=== PATIENT | male | born 1960 | race Caucasian/White ===

== ENCOUNTER → 2018-03-27 | Outpatient (CLI) | payer BC ==
[~2018-03-27] MED LIST: ADVIL 200MG TA200 MG PO; CEFTIN 250250 MG/TAB PO; CLEOCIN; LAMISIL; LORTAB 5/500 501 TAB PO; MAXIPIME2 GM IV; MINOCYCLINE; MULTI VITAMINS1 TAB PO; NAPROSYN 2250 MG/TAB PO; NORCO 325 MG-51 TAB PO; OMNICEF 300MG300 MG PO; PHENERGAN 25 TA25 MG PO; TIAZAC180 MG; ZOFRAN 4MG T4 MG/TAB PO
== END ==
LOC: COL.LAB 17:12
DX: Z01.812 Encounter for preprocedural laboratory examination (principal)

== ENCOUNTER 2018-09-05 09:45 | Emergency (ER) | payer BC ==
[~2018-09-05] VITALS: Ht 190.5 cm; Wt 109.1 kg
[2018-09-05 10:09] VITALS: TEMP 97
[2018-09-05 10:29] LABS: COLLECTION METHOD CLEAN CATCH
[2018-09-05 10:43] LABS: PH 6 (5-8); SQUAMOUS EPITHELIAL None Seen /hpf; URINE APPEARANCE Clear; URINE BACTERIA Rare /hpf; URINE BILIRUBIN Negative (NEGATIVE); URINE BLOOD 2+ (NEGATIVE); URINE COLOR Yellow; URINE GLUCOSE Negative (NEGATIVE); URINE KETONE Negative (NEGATIVE); URINE LEUKOCYTE ESTERASE Negative (NEGATIVE); URINE NITRATE Negative (NEGATIVE); URINE PROTEIN(semi-quant) Negative (NEGATIVE); URINE RBC >50 /hpf; URINE UROBILINOGEN Negative (NEGATIVE)
[2018-09-05] MEDS ORDERED: OMNICEF 300MG300 MG PO (11:14)
[2018-09-05 11:38] LABS: ALBUMIN 4.3 gm/dL (3.5-5.0); BILIRUBIN,TOTAL 0.5 mg/dL (0.0-1.0); CALCIUM 9.7 mg/dL (8.4-10.2); CREATININE, serum 1.51 (0.66-1.25); POTASSIUM 4.1 mmol/L (3.4-5.0); TOTAL PROTEIN 8.2 gm/dL (6.4-8.2)
[2018-09-05 11:39] LABS: BASO # 0.1 (0.0-0.2); BASO % 0.5 % (0.0-2.0); EOS % 0.3 % (0-4.0); GRAN # 9.7 (1.4-6.5); GRAN % 83.5 % (42.2-75.2); HEMATOCRIT 45.2 % (42.0-52.0); HEMOGLOBIN 14.8 g/dl (13.5-18.0); LYMPH # 1.2 (1.2-3.4); LYMPH % 10.1 % (20.0-51.0); MEAN CELL VOLUME 89 fl (80.0-100.0); MEAN CORPUSCULAR HEMOGLOBIN 29 pg (27.0-31.0); MEAN CORPUSCULAR HGB CONC 33 g/dl (33.0-37.0); MEAN PLATELET VOLUME 10.7 fl (7.4-10.4); MONO # 0.6 (0.1-0.6); MONO % 5.3 % (1.7-9.3); PLATELET COUNT 204 K/mm3 (130-400); RED BLOOD COUNT 5.08 M/mm3 (4.20-5.60); REDCELL DISTRIBUTION WIDTH-CV 14.3 % (11.5-14.5)
[2018-09-05] MEDS ORDERED: ZOFRAN ODT8 MG PO (12:04)
[2018-09-05] MEDS ORDERED: PERCOCET 325 MG1 TA2 PO (12:04)
[2018-09-05 13:11] VITALS: BP 149/79; PULSE 68
== END 2018-09-05 13:12 | disposition home or self-care (01) ==
LOC: COL.ER 09:45
PROVIDERS: Emergency Medicine
DX: N39.0 Urinary tract infection, site not specified (principal); Z87.442 Personal history of urinary calculi
CPT/HCPCS: A4216; J0696; J1885; J2270; J2405; J7030; Q9967

== ENCOUNTER 2019-08-14 21:33 | Inpatient (IN) | payer BC ==
[~2019-08-14] VITALS: Ht 188 cm; Wt 105.3 kg
[~2019-08-14 21:33] MED LIST changes: +PERCOCET 325 MG1 TA2 PO; -TIAZAC180 MG; +TIAZAC180 MG PO; +ZOFRAN ODT8 MG PO
[2019-08-14 22:21] LABS: HEMOGLOBIN 12.3 g/dl (13.5-18.0); MEAN CELL VOLUME 88 fl (80.0-100.0); MEAN CORPUSCULAR HEMOGLOBIN 30 pg (27.0-31.0); MEAN CORPUSCULAR HGB CONC 34 g/dl (33.0-37.0); MEAN PLATELET VOLUME 10.8 fl (7.4-10.4); PLATELET COUNT 173 K/mm3 (130-400); RED BLOOD COUNT 4.11 M/mm3 (4.20-5.60); REDCELL DISTRIBUTION WIDTH-CV 13.8 % (11.5-14.5)
[2019-08-14 22:25] LABS: HEMATOCRIT 36.3 % (42.0-52.0)
[2019-08-14 22:38] LABS: BILIRUBIN,TOTAL 0.7 mg/dL (0.0-1.0); CALCIUM 9.1 mg/dL (8.4-10.2); CREATININE, serum 2.21 (0.66-1.25); POTASSIUM 3.3 mmol/L (3.4-5.0); TOTAL PROTEIN 8.2 gm/dL (6.4-8.2)
[2019-08-14 23:22] LABS: BAND 8 % (0-10); LYMPHOCYTE 4 % (20.0-51.0); NEUTROPHILS 79 % (42.0-75.2); PLATELET ESTIMATE NORMAL (NORMAL)
[2019-08-14 23:27] LABS: SYNOVIAL FLUID APPEARANCE TURBID; SYNOVIAL FLUID COLOR YELLOW
[2019-08-14 23:28] LABS: SYNOVIAL FL. MONONUCLEAR 41.3 % (0-75); SYNOVIAL FLUID RBC 19000 /mm3 (0-0); SYNOVIAL FLUID WBC 86498 /mm3 (200-600)
[2019-08-14 23:33] LABS: C-REACTIVE PROTEIN 67.8 mg/dL (0.0-0.9)
[2019-08-15] VITALS (14 sets, daily range): BP systolic 124–147; BP diastolic 75–89; PULSE 98–111; TEMP 98.9–101.7
--- NOTE | 2019-08-15 01:19 | NUR ---
Pt. arrived to the floor via Balaya. Pt. is A&OX3, assessment complete. INT to rt. ac patent. Pt. denies pain or other needs, call light within reach.
[2019-08-15 07:05] LABS: COLLECTION METHOD CLEAN CATCH
[2019-08-15 07:45] LABS: AMORPHOUS CRYSTAL Present /uL; MUCOUS Present /lpf; PH 5 (5-8); SQUAMOUS EPITHELIAL None Seen /hpf; URINE APPEARANCE Hazy; URINE BACTERIA Rare /hpf; URINE BILIRUBIN Negative (NEGATIVE); URINE BLOOD 1+ (NEGATIVE); URINE COLOR Yellow; URINE GLUCOSE Negative (NEGATIVE); URINE KETONE 1+ (NEGATIVE); URINE LEUKOCYTE ESTERASE Negative (NEGATIVE); URINE NITRATE Negative (NEGATIVE); URINE PROTEIN(semi-quant) 2+ (NEGATIVE); URINE UROBILINOGEN Negative (NEGATIVE)
--- NOTE | 2019-08-15 07:51 | NUR ---
Lying in bed watching TV. Patient is diaphoretic and he says that he gets this way when he gets these infections in his knee and that is what prompted him to get seen. Temperature in room decreased. Rates pain 2/10 in right knee, describes as tight ache, worsens with movement and touching. Patient says that it has been so sore he tries not to move it. Right knee has 2+ edema, no redness noted, is warm to touch. Patient denies further needs at this time.
[2019-08-15 08:08] LABS: ALBUMIN 3.5 gm/dL (3.5-5.0); BILIRUBIN,TOTAL 0.5 mg/dL (0.0-1.0); CALCIUM 8.8 mg/dL (8.4-10.2); CREATININE, serum 2.48 (0.66-1.25); POTASSIUM 3.4 mmol/L (3.4-5.0); TOTAL PROTEIN 7.4 gm/dL (6.4-8.2)
--- NOTE | 2019-08-15 09:40 | NUR ---
Reviewed surgical consent with the patient. Questions answered. Patient verbalizes understanding and signs consent. Consent placed on chart. Patient denies further needs at this time.
--- NOTE | 2019-08-15 09:55 | NUR ---
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 Pharmacy will continue monitoring. Loading dose: 2 grams Maintenance dose: 1.5 grams every 24 hours Trough goal: 15-20 ug/mL if Vancomycin duration increased. No Vancomycin trough ordered for therapy of 2 days.
--- NOTE | 2019-08-15 11:18 | NUR ---
Patient to surgery at this time via bed with surgical staff.
--- NOTE | 2019-08-15 12:43 | NUR ---
Plan is to return home with Rohith and DTR Yamileth Thurman. Patient reports that he resides locally. PCP is Dr. Lewis no DME and meds are obtained at [facility]. No DPOA Assigned. Patient was educated on resources and services. Patient has not identified any other concerns. Nothing Follows.
--- NOTE | 2019-08-15 16:00 | NUR ---
Patient brought to room via bed from surgery. Minimal pain at this time. Right leg with christofer wrap CDI. Hemovac drain to right knee compressed, minimal bloody drainage noted. Patient having a little bit of nausea.
--- NOTE | 2019-08-15 16:25 | NUR ---
Continues to have no feeling in right lower extremity.
--- NOTE | 2019-08-15 16:26 | NUR ---
Continues to have no feeling or movement in right lower extremity.
--- NOTE | 2019-08-15 16:53 | NUR ---
Continues to have no feeling or movement in right lower extremity. CMS intact.
--- NOTE | 2019-08-15 17:21 | NUR ---
Patient sitting up in bed with eyes open. Tolerated some of the polish ice. Does not like jello or the broth. Offered some other options but patient declines at this time. Patient explains in the past with anesthesia he was very nauseated and had vomiting so he knows that he needs to take it slow. Rating pain 4/10 in right knee and describes as burning. Patient would like pain medication before the pain gets worse. Administered pain medication as prescribed.
--- NOTE | 2019-08-15 20:30 | NUR ---
Patient resting in bed at this time. Patient is alert and oriented, answers questions appropriately. Patient is able to slightly move his toes and is able to feel pressure from touch, cap refill intact. Dressing is CDI, patient was given pain medication by previous shift and reports that pain is well controlled. Hemovac in place to compression. Patient is concerned that it is full, emptied 90 ml of bloody drainage for paitent comfort. IVF continue per order. Patient denies further needs at this time, call light within reach.
[2019-08-16] VITALS (7 sets, daily range): BP systolic 100–130; BP diastolic 63–84; PULSE 78–94; TEMP 97.9–99.8
--- NOTE | 2019-08-16 05:51 | NUR ---
Patient resting in bed at this time. Patient requested PRN pain medication twice during the shift, reports pain is well controlled with medication. Ice to right knee. Hemovac in place. Patient tolerating PO intake well, no nausea or vomiting reported. Patient denies further needs at this time, call light within reach.
[2019-08-16 08:04] LABS: BASO % 0.4 % (0.0-2.0); EOS % 0.3 % (0-4.0); GRAN # 7.9 (1.4-6.5); LYMPH % 9.9 % (20.0-51.0); MEAN CELL VOLUME 90 fl (80.0-100.0); MEAN CORPUSCULAR HEMOGLOBIN 30 pg (27.0-31.0); MEAN CORPUSCULAR HGB CONC 33 g/dl (33.0-37.0); MEAN PLATELET VOLUME 10.9 fl (7.4-10.4); MONO # 1.1 (0.1-0.6); MONO % 10.8 % (1.7-9.3); PLATELET COUNT 165 K/mm3 (130-400); RED BLOOD COUNT 3.66 M/mm3 (4.20-5.60); REDCELL DISTRIBUTION WIDTH-CV 14.1 % (11.5-14.5)
[2019-08-16 08:15] LABS: CALCIUM 8.7 mg/dL (8.4-10.2); CREATININE, serum 2.63 (0.66-1.25); POTASSIUM 3.7 mmol/L (3.4-5.0)
[2019-08-16 08:24] LABS: HEMATOCRIT 32.9 % (42.0-52.0)
--- NOTE | 2019-08-16 09:30 | NUR ---
Denied need for pain med other than scheduled Tylenol. Afebrile. Stated he was sweating all night. Ambulated in halls with physical therapy.
--- NOTE | 2019-08-16 18:00 | NUR ---
Right leg pain relieved with prn Roxicodone. Minimal drainage from hemovac. Afebrile.
[2019-08-17 01:35] VITALS: BP 108/71; PULSE 83; TEMP 97.9
[2019-08-17 04:35] VITALS: BP 125/89; PULSE 97; TEMP 98.4
--- NOTE | 2019-08-17 05:39 | NUR ---
Patient rested well overnight. Patient is alert and oriented while awake, answers questions appropriately. Administered PRN pain medication once per patient request. Negligable approximately 10 ml out of hemovac during the shift. Patient denies pain or needs at this time, call light within reach.
[2019-08-17 07:12] LABS: BASO % 0.4 % (0.0-2.0); EOS # 0.1 (0.0-0.7); EOS % 1.2 % (0-4.0); GRAN # 5.6 (1.4-6.5); GRAN % 73.7 % (42.2-75.2); HEMOGLOBIN 10.9 g/dl (13.5-18.0); LYMPH # 0.8 (1.2-3.4); LYMPH % 10.5 % (20.0-51.0); MEAN CELL VOLUME 89 fl (80.0-100.0); MEAN CORPUSCULAR HEMOGLOBIN 30 pg (27.0-31.0); MEAN CORPUSCULAR HGB CONC 34 g/dl (33.0-37.0); MEAN PLATELET VOLUME 10.8 fl (7.4-10.4); MONO % 13.5 % (1.7-9.3); PLATELET COUNT 190 K/mm3 (130-400); RED BLOOD COUNT 3.65 M/mm3 (4.20-5.60)
[2019-08-17 07:19] LABS: CALCIUM 8.7 mg/dL (8.4-10.2); CREATININE, serum 2.5 (0.66-1.25); POTASSIUM 3.5 mmol/L (3.4-5.0)
[2019-08-17 07:33] LABS: HEMATOCRIT 32.4 % (42.0-52.0)
[2019-08-17 07:34] LABS: ERYTHROCYTE SEDIMENTATION RATE 123 mm/hr (0-30)
--- NOTE | 2019-08-17 07:48 | NUR ---
Notified AMENA Rausch, that order was placed for PICC. Miracle explains that they are waiting on Dr. Leija to see the patient to advise on what type of central line would be best for the patient.
[2019-08-17 08:01] VITALS: BP 131/86; PULSE 94; TEMP 99.4
--- NOTE | 2019-08-17 08:25 | NUR ---
Sitting up in bed with eyes open watching TV and talking on cell phone. Rates pain 2/10 in right knee and would like pain medication to stay ahead of the pain, describes as tight. Dressing to right knee CDI. CMS intact. Will administer pain medication as prescribed. Denies further needs.
--- NOTE | 2019-08-17 09:16 | NUR ---
Spoke with Dr. Leija regarding consult and also informed him that they would like his opinion on what type of central line to place. Dr. Leija says he will address that when he sees the patient.
--- NOTE | 2019-08-17 09:18 | NUR ---
PT in room to work with the patient. Patient requests to give the medication one more hour to work. PT agrees and will come back to work with the patient. Patient denies needs at this time.
--- NOTE | 2019-08-17 10:21 | NUR ---
Call made to Dr. Lewis's office and spoke with Jaclyn to see if they will fax over recent H&P, med list, and labs. Jaclyn says they will fax records.
--- NOTE | 2019-08-17 12:59 | NUR ---
Consent for procedure tomorrow reviewed with the patient. Questions answered. Patient verbalizes understanding and signs consent. Consent placed in chart.
[2019-08-17 13:25] VITALS: BP 135/78; PULSE 86; TEMP 100
--- NOTE | 2019-08-17 13:49 | NUR ---
Patient lying in bed with eyes open. AMENA Rausch, in room with patient discussing placement of PICC in left upper arm.
--- NOTE | 2019-08-17 14:55 | NUR ---
Ultrasound in room with the patient.
--- NOTE | 2019-08-17 15:56 | NUR ---
Stabilizing Machine Operator met with patient to discuss consult for outpatient IV antibiotics. Patient would like to go to the [facility] for this. ELEAZAR contacted Nora at [facility] and faxed clinical information along with script from [facility]. ELEAZAR also consulted CALLUM Mariano as patient will need prior auth. SW to continue to follow.
[2019-08-17 16:02] VITALS: BP 148/65; PULSE 83; TEMP 98.6
[2019-08-17 18:07] LABS: URINE PROTEIN:CREAT RATIO 0.94 (0.00-0.14)
--- NOTE | 2019-08-17 18:14 | NUR ---
Rating pain 3/10 in right knee, would like pain medication. Tramadol administered as prescribed. Patient denies further needs at this time.
[2019-08-17 20:23] VITALS: BP 143/58; PULSE 90; TEMP 99.6
--- NOTE | 2019-08-17 20:45 | NUR ---
Pt. sitting up in bed at this time. Pt. is A&OX3, assessment complete. PICC to lt. upper arm patent. Dressing to rt. knee CDI. Pt. denies pain or other needs, call light within reach.
[2019-08-18] VITALS (13 sets, daily range): BP systolic 126–168; BP diastolic 56–88; PULSE 81–96; TEMP 98–99.2
[2019-08-18 07:05] LABS: BASO % 0.4 % (0.0-2.0); EOS # 0.2 (0.0-0.7); EOS % 2.3 % (0-4.0); GRAN # 4.8 (1.4-6.5); GRAN % 68.4 % (42.2-75.2); HEMOGLOBIN 10.7 g/dl (13.5-18.0); LYMPH # 0.9 (1.2-3.4); LYMPH % 12.5 % (20.0-51.0); MEAN CELL VOLUME 89 fl (80.0-100.0); MEAN CORPUSCULAR HEMOGLOBIN 29 pg (27.0-31.0); MEAN CORPUSCULAR HGB CONC 32 g/dl (33.0-37.0); MEAN PLATELET VOLUME 10.8 fl (7.4-10.4); MONO % 14.8 % (1.7-9.3); PLATELET COUNT 212 K/mm3 (130-400); REDCELL DISTRIBUTION WIDTH-CV 13.9 % (11.5-14.5)
[2019-08-18 07:08] LABS: CALCIUM 8.9 mg/dL (8.4-10.2); CREATININE, serum 2.34 (0.66-1.25); POTASSIUM 3.5 mmol/L (3.4-5.0)
--- NOTE | 2019-08-18 11:06 | NUR ---
Patient resting in bed. Patient made aware of plans for the OR at 1400. His called and updated on plan. Patient denies the need for pain medication. He bathed independently. K+ replacement per protocol. Right LLE dressed & hemovac drain to compression. Picc to RUE.
--- NOTE | 2019-08-18 14:00 | NUR ---
Patient to OR with [facility].
--- NOTE | 2019-08-18 18:06 | NUR ---
Patient has returned from the OR. He is alert & oriented. Vss on room air. Tyelnol as scheduled & ultram for pain. Drainage noted to knee dressing, reenforced with ABD & Manuel wrap. Serous in color. Rufino placed to Left Leg. Scds ble. Picc to Int. He tolerated dinner. He has been on the phone with his . Tito huang.
--- NOTE | 2019-08-18 20:00 | NUR ---
Report received, assumed care for customer solutions specialist. Assessment complete VS stable. A&Ox3-drowsy. Denies nausea/shortness of breath. Tolerating PO. Voiding without difficulty. + flatus. Rating pain to right lower extremity/knee 3/10 described as constant ache-denies need for intervention. States he will call when ready for pain meds. PICC to right upper arm-flushes difficulty. Dressng to right lower extremity-bulky white gauze-with ABDs. No new drainage after reinforcement on day shift. IS at bedside encouraged use. Denies needs. Call light in reach. Will monitor.
--- NOTE | 2019-08-18 22:00 | NUR ---
C/O pain to right knee-described as constant throbbing-rating 5/10 on pain scale. States he cant take narcotics without famotidine unless it is a meal time. Hospitalist notified and new orders received. Denies currently needs. Will continue to monitor.
[2019-08-19 00:13] VITALS: BP 159/76; PULSE 85; TEMP 99
[2019-08-19 05:03] VITALS: BP 150/80; PULSE 78; TEMP 99.1
--- NOTE | 2019-08-19 06:20 | NUR ---
Has rested off and on this shift. Right lower extremity elevated on pillows-fresh ice pack applied. SCDs/TEDs bilat. C/O pain to right knee-rating pain 6/10 on pain scale-described as constant throbbing. Labs drawn off PICC line without difficulty. Denies questions/concerns. Call light in reach. Will monitor.
[2019-08-19 06:53] LABS: HEMOGLOBIN 10.5 g/dl (13.5-18.0); MEAN CELL VOLUME 90 fl (80.0-100.0); MEAN CORPUSCULAR HEMOGLOBIN 29 pg (27.0-31.0); MEAN CORPUSCULAR HGB CONC 32 g/dl (33.0-37.0); MEAN PLATELET VOLUME 10.5 fl (7.4-10.4); PLATELET COUNT 244 K/mm3 (130-400); RED BLOOD COUNT 3.64 M/mm3 (4.20-5.60)
[2019-08-19 06:54] LABS: HEMATOCRIT 32.9 % (42.0-52.0)
[2019-08-19 07:10] LABS: CALCIUM 8.5 mg/dL (8.4-10.2); CREATININE, serum 2.29 (0.66-1.25); POTASSIUM 3.6 mmol/L (3.4-5.0)
[2019-08-19 07:16] LABS: ERYTHROCYTE SEDIMENTATION RATE 122 mm/hr (0-30)
[2019-08-19 07:23] LABS: BAND 5 % (0-10); BASOPHIL 1 % (0-2); EOSINOPHIL 3 % (0-4); LYMPHOCYTE 21 % (20.0-51.0); METAMYELOCYTE 1 % (0-0); MYELOCYTE 1 % (0-0); NEUTROPHILS 60 % (42.0-75.2); PLATELET ESTIMATE NORMAL (NORMAL)
--- NOTE | 2019-08-19 07:24 | NUR ---
Lying in bed with eyes open. Minimal pain in right knee at this time. Discharge noted to back to thigh on KIYA dressing and chux pad under patient leg. Discharge is serosanguinous in appearance. Explain that we will need to let the Ortho provider know when they come in to see him and they will more than likely want to change it. Patient hopes to go home today. Patient denies further needs at this time.
[2019-08-19 07:29] VITALS: BP 137/83; PULSE 83; TEMP 97.8
[2019-08-19 07:42] LABS: C-REACTIVE PROTEIN 42.1 mg/dL (0.0-0.9)
--- NOTE | 2019-08-19 08:49 | NUR ---
Dressing to right knee changed at this time due to discharge through dressing onto bed. Incision well approximated, no redness or discharge noted. Right knee has 2+ edema. There is a small site from where the hemovac was on outer aspect of right knee, no redness or edema at this time. Minimal serosanguinous discharge coming from this site. Applied 4x4's and ABD to site where hemovac was. Applied soft roll and then wrapped with christofer wrap. Patient tolerates without difficulty. Patient gets out of bed at this time to sit on couch by window. Requires minimal assist in getting out of bed. Uses walker for transfers. Patient denies needs at this time.
--- NOTE | 2019-08-19 11:02 | NUR ---
Called [employer] concerning need for PreAuth for OUTPT Rocephin. Pt does not need PreAuth for this. Ivanna BUSH notified.
[2019-08-19 11:46] VITALS: BP 156/92; PULSE 83; TEMP 98.3
--- NOTE | 2019-08-19 12:18 | NUR ---
Rating pain 7/10, requests pain mediction. Roxicodone administered as prescribed. Patient lying in bed watching TV. Denies further needs at this time.
--- NOTE | 2019-08-19 12:29 | NUR ---
First visit from the straw boss. No needs right now.
--- NOTE | 2019-08-19 13:42 | NUR ---
Electric Welder followed up with Nora at [facility]. ELEAZAR advised Nora that per CALLUM Mariano patient will not need prior authorization. Patient's first appointment will be Friday at 0830. ELEAZAR met with patient to provide update. Patient is agreeable to this appointment time. Patient will likely discharge tomorrow. ELEAZAR will continue to follow.
--- NOTE | 2019-08-19 14:02 | NUR ---
Lying in bed with eyes open watching TV. Patient says that his should be coming at 1400 today. Explains that his pain is much better at this time. Denies further needs.
[2019-08-19 15:49] VITALS: BP 144/80; PULSE 87; TEMP 98.9
--- NOTE | 2019-08-19 16:36 | NUR ---
Patient requests stool softener. Discussed options and the patient would like Colace at this time. Colace administered as prescribed. in room with the patient. Patient having minimal pain in right knee at this time. Denies further needs.
[2019-08-19 19:35] VITALS: BP 139/84; PULSE 84; TEMP 98.9
[2019-08-20] VITALS: BP 153/72; PULSE 82; TEMP 98
--- NOTE | 2019-08-20 04:08 | NUR ---
Patient has been resting with eyes closed this shift. Patient has been afebrile, with no complaints of pain, nausea or diarrhea. Patient requested one dose of pain medication this shift. Patient dressing on right knee still dry and intact. PICC line flushed, blood return noted.
[2019-08-20 04:12] VITALS: BP 135/73; PULSE 84; TEMP 98.4
[2019-08-20] MEDS ORDERED: ZOFRAN 4MG T4 MG/TAB PO (06:34)
[2019-08-20] MEDS ORDERED: ASPI325T6 PO (06:34)
[2019-08-20] MEDS ORDERED: PERCOCET 325 MG1 TA2 PO (06:34)
[2019-08-20] MEDS ORDERED: ROCEPHIN VIA1 G/VIAL IV (06:34)
[2019-08-20 07:08] LABS: HEMOGLOBIN 10.9 g/dl (13.5-18.0); MEAN CELL VOLUME 90 fl (80.0-100.0); MEAN CORPUSCULAR HEMOGLOBIN 29 pg (27.0-31.0); MEAN CORPUSCULAR HGB CONC 32 g/dl (33.0-37.0); MEAN PLATELET VOLUME 10.4 fl (7.4-10.4); PLATELET COUNT 298 K/mm3 (130-400); RED BLOOD COUNT 3.79 M/mm3 (4.20-5.60); REDCELL DISTRIBUTION WIDTH-CV 14.2 % (11.5-14.5)
[2019-08-20 07:39] LABS: BAND 10 % (0-10); EOSINOPHIL 4 % (0-4); LYMPHOCYTE 15 % (20.0-51.0); METAMYELOCYTE 2 % (0-0); NEUTROPHILS 65 % (42.0-75.2); PLATELET ESTIMATE NORMAL (NORMAL)
[2019-08-20 08:08] VITALS: BP 152/84; PULSE 92; TEMP 98.2
[2019-08-20 08:59] LABS: ERYTHROCYTE SEDIMENTATION RATE > 140 mm/hr (0-30)
--- NOTE | 2019-08-20 09:27 | NUR ---
Patient resting in bed. Plans for discharge this afternoon. Plans for Iv antibioitcs outpatient in express unit. Ortho rounded this am. Voicemail left for dressing change clarification orders. Tito huang
--- NOTE | 2019-08-20 10:59 | NUR ---
Spoke with Blaise from Ortho. Orders for dressing change received. Prior gauze & christofer wrap dressing removed, very minimal drainge noted. New aquacell dressing placed to knee. Rufino to Rle over dressing. Removed Rufino from Left leg for a break. Spoke to his daughter on the phone gave an update.
--- NOTE | 2019-08-20 11:37 | NUR ---
Continuous Mining Operator met with patient to review discharge plan. Patient's first appointment at [facility] will be tomorrow at 830 and patient understands this. ELEAZAR collaborated with [facility] who faxed orders and communicated with Nora in [facility]. ELEAZAR followed up with Nora who advised she has everything she needs. Patient reports his daughter will pick him up and take him home today. No additional needs at this time.
--- NOTE | 2019-08-20 12:34 | NUR ---
Discharge orders obtained. Patient given all instructions. Script for asa & zofran called into pharmacy of choice. Script for percocet sent with patient. Spoke with Nora in Express unit Patient is all set up for first dose of Iv antibioitcs in the morning at 0830 via picc. Rocephin dose given for today. We reviewed incision care & signs and symptoms of infections. patient is aware of all his post op follow up appt. We discussed his CKD & diet tips given. Waiting for a ride from his daughter.
--- NOTE | 2019-08-20 13:02 | NUR ---
Patient wheeled out with all belongings. His daughter taking him home.
== END 2019-08-20 13:03 | disposition home or self-care (01) | DRG 485 ==
LOC: COL.ER 21:33 → SURG 08-15 00:07
PROVIDERS: Family Medicine; Internal Medicine Nephrology; Orthopaedic Surgery Sports Medicine; Physician Assistant; ADMIT Orthopaedic Surgery
PROC: 0S9C3ZX Drainage of Right Knee Joint, Percutaneous Approach, Diagnostic (ICD-10-PCS; 2019-08-14)
PROC: 0SPC09Z Removal of Liner from Right Knee Joint, Open Approach (ICD-10-PCS; 2019-08-15)
PROC: 0SUV09Z Supplement Right Knee Joint, Tibial Surface with Liner, Open Approach (ICD-10-PCS; 2019-08-15)
PROC: 0SBC0ZZ Excision of Right Knee Joint, Open Approach (ICD-10-PCS; principal; 2019-08-15 12:00)
PROC: 0SPC09Z Removal of Liner from Right Knee Joint, Open Approach (ICD-10-PCS; 2019-08-18)
PROC: 0SUV09Z Supplement Right Knee Joint, Tibial Surface with Liner, Open Approach (ICD-10-PCS; 2019-08-18)
PROC: 0SBC0ZZ Excision of Right Knee Joint, Open Approach (ICD-10-PCS; 2019-08-18)
DX: T84.53XA Infection and inflammatory reaction due to internal right knee prosthesis, initial encounter (principal); A40.8 Other streptococcal sepsis; N17.9 Acute kidney failure, unspecified; E87.1 Hypo-osmolality and hyponatremia; L03.115 Cellulitis of right lower limb; M25.461 Effusion, right knee; Z96.651 Presence of right artificial knee joint; F17.209 Nicotine dependence, unspecified, with unspecified nicotine-induced disorders; Z88.1 Allergy status to other antibiotic agents; Y79.2 Prosthetic and other implants, materials and accessory orthopedic devices associated with adverse incidents; I12.9 Hypertensive chronic kidney disease with stage 1 through stage 4 chronic kidney disease, or unspecified chronic kidney disease; R31.9 Hematuria, unspecified; D64.9 Anemia, unspecified; N18.3 Chronic kidney disease, stage 3 (moderate); N20.0 Calculus of kidney
CPT/HCPCS: 99222; 99232-AI; A9284; C1751; C1776; C1892; J0696; J1650; J2250; J2405; J2704; J2765; J2795; J3010; J3370; J3480; J7030; J7040; J7050; J7120; J7121

== ENCOUNTER 2019-10-01 08:00 | Outpatient (RCR) | payer BC ==
[2019-08-21 09:28] VITALS: BP 130/88; PULSE 69; TEMP 98.8
[2019-08-22 09:08] VITALS: BP 138/79; PULSE 81; TEMP 97.9
[2019-08-23 09:30] VITALS: BP 154/96; PULSE 87; TEMP 98.6
[2019-08-23 09:45] LABS: HEMOGLOBIN 11.1 g/dl (13.5-18.0); MEAN CELL VOLUME 90 fl (80.0-100.0); MEAN CORPUSCULAR HEMOGLOBIN 29 pg (27.0-31.0); MEAN CORPUSCULAR HGB CONC 32 g/dl (33.0-37.0); MEAN PLATELET VOLUME 9.7 fl (7.4-10.4); PLATELET COUNT 457 K/mm3 (130-400); RED BLOOD COUNT 3.82 M/mm3 (4.20-5.60); REDCELL DISTRIBUTION WIDTH-CV 14.1 % (11.5-14.5)
[2019-08-23 09:58] LABS: ALBUMIN 3.7 gm/dL (3.5-5.0); BILIRUBIN,TOTAL 0.4 mg/dL (0.0-1.0); CALCIUM 9.6 mg/dL (8.4-10.2); CREATININE, serum 2.18 (0.66-1.25); POTASSIUM 4.5 mmol/L (3.4-5.0); TOTAL PROTEIN 7.9 gm/dL (6.4-8.2)
[2019-08-23 10:09] LABS: C-REACTIVE PROTEIN 26.3 mg/dL (0.0-0.9)
[2019-08-23 10:10] LABS: HEMATOCRIT 34.4 % (42.0-52.0)
[2019-08-23 10:11] LABS: ERYTHROCYTE SEDIMENTATION RATE > 140 mm/hr (0-30)
[2019-08-24 09:27] VITALS: BP 139/81; PULSE 98; TEMP 98
[2019-08-25 09:16] VITALS: BP 162/98; PULSE 89; TEMP 98.2
[2019-08-26 09:23] VITALS: BP 150/96; PULSE 87; TEMP 99
[2019-08-27 09:41] VITALS: BP 151/93; PULSE 66; TEMP 97.7
[2019-08-30 09:21] LABS: HEMATOCRIT 32.7 % (42.0-52.0); HEMOGLOBIN 10.5 g/dl (13.5-18.0); MEAN CELL VOLUME 90 fl (80.0-100.0); MEAN CORPUSCULAR HEMOGLOBIN 29 pg (27.0-31.0); MEAN CORPUSCULAR HGB CONC 32 g/dl (33.0-37.0); MEAN PLATELET VOLUME 9.6 fl (7.4-10.4); PLATELET COUNT 427 K/mm3 (130-400); RED BLOOD COUNT 3.65 M/mm3 (4.20-5.60); REDCELL DISTRIBUTION WIDTH-CV 13.2 % (11.5-14.5)
[2019-08-30 09:27] VITALS: BP 115/100; PULSE 82; TEMP 98.2
[2019-08-30 09:41] LABS: ALBUMIN 3.8 gm/dL (3.5-5.0); BILIRUBIN,TOTAL 0.4 mg/dL (0.0-1.0); CALCIUM 9.8 mg/dL (8.4-10.2); CREATININE, serum 1.92 (0.66-1.25); POTASSIUM 4.1 mmol/L (3.4-5.0); TOTAL PROTEIN 8.2 gm/dL (6.4-8.2)
[2019-08-30 09:45] LABS: ERYTHROCYTE SEDIMENTATION RATE > 140 mm/hr (0-30)
[2019-08-30 09:52] LABS: C-REACTIVE PROTEIN 15.9 mg/dL (0.0-0.9)
[2019-08-31 09:13] VITALS: BP 136/87; PULSE 84; TEMP 99
[2019-09-01 09:05] VITALS: BP 118/90; PULSE 78; TEMP 98.4
[2019-09-02 09:11] VITALS: BP 138/85; PULSE 90; TEMP 98.4
[2019-09-03 08:30] VITALS: BP 158/100; PULSE 96; TEMP 98.5
[2019-09-04 08:00] VITALS: BP 144/89; PULSE 96; TEMP 98.1
[2019-09-06 09:15] VITALS: BP 139/84; PULSE 81; TEMP 98.3
[2019-09-06 09:24] LABS: MEAN CELL VOLUME 89 fl (80.0-100.0); MEAN CORPUSCULAR HEMOGLOBIN 29 pg (27.0-31.0); MEAN CORPUSCULAR HGB CONC 32 g/dl (33.0-37.0); MEAN PLATELET VOLUME 9.9 fl (7.4-10.4); PLATELET COUNT 280 K/mm3 (130-400); REDCELL DISTRIBUTION WIDTH-CV 13.3 % (11.5-14.5)
[2019-09-06 09:28] LABS: HEMATOCRIT 31.1 % (42.0-52.0)
[2019-09-06 09:54] LABS: ALBUMIN 3.8 gm/dL (3.5-5.0); BILIRUBIN,TOTAL 0.4 mg/dL (0.0-1.0); C-REACTIVE PROTEIN 6.8 mg/dL (0.0-0.9); CALCIUM 9.4 mg/dL (8.4-10.2); CREATININE, serum 1.49 (0.66-1.25); POTASSIUM 4.1 mmol/L (3.4-5.0); TOTAL PROTEIN 8.1 gm/dL (6.4-8.2)
[2019-09-06 10:01] LABS: ERYTHROCYTE SEDIMENTATION RATE 10 mm/hr (0-30)
[2019-09-07 08:53] VITALS: BP 162/93; PULSE 94; TEMP 98.2
[2019-09-08 08:50] VITALS: BP 139/85; PULSE 81; TEMP 98.6
[2019-09-09 08:57] VITALS: BP 152/93; PULSE 91; TEMP 98.3
[2019-09-10 09:27] VITALS: BP 155/91; PULSE 91; TEMP 98.4
[2019-09-11 08:37] VITALS: BP 145/91; PULSE 79; TEMP 98.6
[2019-09-12 09:13] VITALS: BP 147/88; PULSE 81; TEMP 98.9
[2019-09-13 09:00] VITALS: BP 145/91; PULSE 75; TEMP 98
[2019-09-13 09:19] LABS: MEAN CELL VOLUME 89 fl (80.0-100.0); MEAN CORPUSCULAR HEMOGLOBIN 28 pg (27.0-31.0); MEAN CORPUSCULAR HGB CONC 32 g/dl (33.0-37.0); MEAN PLATELET VOLUME 10.1 fl (7.4-10.4); PLATELET COUNT 255 K/mm3 (130-400); RED BLOOD COUNT 3.56 M/mm3 (4.20-5.60); REDCELL DISTRIBUTION WIDTH-CV 13.4 % (11.5-14.5)
[2019-09-13 09:38] LABS: ALBUMIN 3.8 gm/dL (3.5-5.0); BILIRUBIN,TOTAL 0.3 mg/dL (0.0-1.0); C-REACTIVE PROTEIN 3.7 mg/dL (0.0-0.9); CALCIUM 9.2 mg/dL (8.4-10.2); CREATININE, serum 1.31 (0.66-1.25); HEMATOCRIT 31.7 % (42.0-52.0); TOTAL PROTEIN 8.1 gm/dL (6.4-8.2)
[2019-09-13 09:42] LABS: ERYTHROCYTE SEDIMENTATION RATE 97 mm/hr (0-30)
[2019-09-14 08:58] VITALS: BP 148/80; PULSE 77; TEMP 97.9
[2019-09-15 09:04] VITALS: BP 121/83; PULSE 90; TEMP 98.8
[2019-09-16 10:01] VITALS: BP 145/90; PULSE 83; TEMP 98.9
[2019-09-17 08:43] VITALS: BP 132/86; PULSE 103; TEMP 98.4
[2019-09-18 08:53] VITALS: BP 129/77; PULSE 83; TEMP 98.4
[2019-09-19 08:47] VITALS: BP 135/84; PULSE 85; TEMP 98.9
[2019-09-20 08:21] LABS: HEMOGLOBIN 10.6 g/dl (13.5-18.0); MEAN CELL VOLUME 90 fl (80.0-100.0); MEAN CORPUSCULAR HEMOGLOBIN 29 pg (27.0-31.0); MEAN CORPUSCULAR HGB CONC 32 g/dl (33.0-37.0); MEAN PLATELET VOLUME 10.2 fl (7.4-10.4); PLATELET COUNT 234 K/mm3 (130-400); RED BLOOD COUNT 3.68 M/mm3 (4.20-5.60); REDCELL DISTRIBUTION WIDTH-CV 14.7 % (11.5-14.5)
[2019-09-20 08:23] LABS: HEMATOCRIT 33.1 % (42.0-52.0)
[2019-09-20 08:30] LABS: ALBUMIN 3.7 gm/dL (3.5-5.0); BILIRUBIN,TOTAL 0.4 mg/dL (0.0-1.0); CALCIUM 9.3 mg/dL (8.4-10.2); CREATININE, serum 1.39 (0.66-1.25); TOTAL PROTEIN 7.8 gm/dL (6.4-8.2)
[2019-09-20 08:35] VITALS: BP 127/82; PULSE 75; TEMP 97.9
[2019-09-20 08:43] LABS: ERYTHROCYTE SEDIMENTATION RATE 40 mm/hr (0-30)
[2019-09-21 08:15] VITALS: BP 122/86; PULSE 82; TEMP 98.5
[2019-09-22 08:14] VITALS: BP 132/88; PULSE 88; TEMP 99
[2019-09-23 08:05] VITALS: BP 155/95; PULSE 84; TEMP 98
[2019-09-24 08:06] VITALS: BP 143/96; PULSE 82; TEMP 98.3
[2019-09-25 08:21] VITALS: BP 129/77; PULSE 80; TEMP 98.1
[2019-09-26 08:54] VITALS: BP 137/77; PULSE 82; TEMP 98.1
[2019-09-27 08:30] VITALS: BP 127/72; PULSE 80; TEMP 98
[2019-09-27 08:32] LABS: HEMOGLOBIN 11.2 g/dl (13.5-18.0); MEAN CELL VOLUME 90 fl (80.0-100.0); MEAN CORPUSCULAR HEMOGLOBIN 29 pg (27.0-31.0); MEAN CORPUSCULAR HGB CONC 32 g/dl (33.0-37.0); MEAN PLATELET VOLUME 10.5 fl (7.4-10.4); PLATELET COUNT 207 K/mm3 (130-400); REDCELL DISTRIBUTION WIDTH-CV 15.2 % (11.5-14.5)
[2019-09-27 08:33] LABS: HEMATOCRIT 35.1 % (42.0-52.0)
[2019-09-27 08:38] LABS: ALBUMIN 3.8 gm/dL (3.5-5.0); BILIRUBIN,TOTAL 0.4 mg/dL (0.0-1.0); C-REACTIVE PROTEIN 2.3 mg/dL (0.0-0.9); CALCIUM 9.1 mg/dL (8.4-10.2); CREATININE, serum 1.38 (0.66-1.25); POTASSIUM 3.9 mmol/L (3.4-5.0); TOTAL PROTEIN 7.8 gm/dL (6.4-8.2)
[2019-09-27 09:11] LABS: ERYTHROCYTE SEDIMENTATION RATE 33 mm/hr (0-30)
[2019-09-28 08:59] VITALS: BP 117/77; PULSE 86; TEMP 98.8
[2019-09-29 08:03] VITALS: BP 103/77; PULSE 86; TEMP 98
[2019-09-30 08:08] VITALS: BP 142/82; PULSE 80; TEMP 98.2
[~2019-10-01] VITALS: Ht 188 cm; Wt 103.8 kg
[~2019-10-01 08:00] MED LIST changes: +ASPI325T6 PO; +ROCEPHIN VIA1 G/VIAL IV
[2019-10-01 08:06] VITALS: BP 131/91; PULSE 80; TEMP 98.1
== END 2019-10-01 08:25 | disposition home or self-care (01) ==
LOC: EUO 08:00
PROVIDERS: Hospitalist; Internal Medicine; Orthopaedic Surgery
DX: T84.53XA Infection and inflammatory reaction due to internal right knee prosthesis, initial encounter (principal)
CPT/HCPCS: J0696

== ENCOUNTER → 2019-10-06 | Outpatient (CLI) | payer BC | LOC: COL.RAD 10:25 | DX: M25.552 Pain in left hip (principal) | CPT/HCPCS: J3301; Q9967 ==

== ENCOUNTER → 2020-03-13 | Outpatient (CLI) | payer BC | LOC: COL.RAD 12:51 | DX: M25.552 Pain in left hip (principal) | CPT/HCPCS: J3301; Q9967 ==

== ENCOUNTER → 2021-12-07 | Outpatient (CLI) | payer BC | LOC: COL.RAD 07:31 | DX: M25.552 Pain in left hip (principal) | CPT/HCPCS: J3301; Q9967 ==